=== PATIENT | female | born 1995 | race African-American/Black ===

== ENCOUNTER 2025-03-27 09:32 | Observation (INO) | payer BC ==
[2025-03-28] MEDS ORDERED: IBU600T PO (21:56)
[2025-03-28] MEDS ORDERED: DOCU-94 PO (21:56)
[2025-03-28] MEDS ORDERED: FER325T PO (21:56)
--- NOTE | 2025-04-07 13:38 | DVHDS2 ---
Physician Discharge Progress N Final Diagnosis: contractions,labor check Operations or Procedures: Operations or Procedures nst reactive reviwed Condition on Discharge: Good Disposition: Home Discharge Instructions: Diet: Regular Activity: No Restrictions, As Tolerated Medications: na Follow Up Care: Specialist: 2d Discharge Statement: "Patient was advised to return to the ER or call 911 if any headaches, dizziness, shortness of breath, chest pain, abdominal pain, bleeding, fevers, or worsening of medical condition. Patient was counseled about treatment plan, medications, possible side effects, patientverbalized understanding. All questions were answered to the best of my ability. This discharge took greater then 30 minutes in planning, reviewing documentation, counseling the patient, and discussing with other team members." Visit Coding OBGYN Date of Service: Mar 27, 2025 Billing Provider: NILAY KLEIN DO SECURED ENTRANCE MONITOR Common Visit Codes: [id number] OBS CARE (HIGH) SECURED ENTRANCE MONITOR Procedure Codes: 93508-60- NON-STRESS TEST NILAY KLEIN DO Apr 07, 2025 13:38
== END 2025-03-27 11:56 | disposition home or self-care (01) ==
LOC: LDRP 09:32
PROVIDERS: ADMIT Obstetrics & Gynecology; ATTEND Obstetrics & Gynecology
DX: O62.9 Abnormality of forces of labor, unspecified (principal); Z3A.38 38 weeks gestation of pregnancy; Z98.890 Other specified postprocedural states; Z79.899 Other long term (current) drug therapy
CPT/HCPCS: 59025; 81002; G0378

== ENCOUNTER 2025-03-27 22:02 | Inpatient (IN) | payer BC ==
[~2025-03-27] VITALS: Ht 154.9 cm; Wt 86.2 kg
[2025-03-27] MEDS ORDERED: LIDOCAINE 2%HCL (LOCAL ANESTH.) INJ 20ML MDV IJ PRN (22:15)
[2025-03-27] MEDS: LACTATED RINGER'S 1,000 ML IV SCH (22:15)
[2025-03-27] MEDS ORDERED: NALBUPHINE HCL 10 MG/1ml INJECTION IM PRN (22:15)
[2025-03-27] MEDS ORDERED: NALBUPHINE HCL 10 MG/1ml INJECTION IV PRN (22:15)
[2025-03-27 22:50] LABS: Urine Protein, UAD Negative (Negative)
[2025-03-27 22:52] LABS: Hematocrit 37.9 % (36.0-46.0); Hemoglobin 12.9 g/dL (12.2-16.2); Mean Corpuscular Hemoglobin 29.7 pg (28.0-32.0); Mean Corpuscular Volume 87.1 fL (80.0-100.0); Nucleated Red Blood Cells % 0.3 %
[2025-03-27 23:05] LABS: Alanine Aminotransferase 23 U/L (7-40); Albumin 4.1 g/dL (3.2-4.8); Anion Gap 9 (5-15); BUN/Creatinine Ratio 12.7 (10.0-20.0); Calcium 9.4 mg/dL (8.7-10.4); Carbon Dioxide 23 mmol/L (20-31); Chloride 107 mmol/L (98-107); Potassium 3.9 mmol/L (3.5-5.1); Sodium 139 mmol/L (136-145); Total Protein 6.8 g/dL (5.7-8.2)
[2025-03-27 23:05] LABS: Amphetamine Screen, Urine Neg (NEGATIVE); Barbiturate Scree,Urine Neg (NEGATIVE); Benzodiazephine Screen, Urine Neg (NEGATIVE); Cannabinoid Screen, Urine Neg (NEGATIVE); Cocaine Screen, Urine Neg (NEGATIVE); Opiate Scree,Urine Neg (NEGATIVE); Phencyclidine Screen, Urine Neg (NEGATIVE)
[2025-03-27 23:06] LABS: Bilirubin, Total 0.5 mg/dL (0.2-1.0)
[2025-03-27 23:09] LABS: Alkaline Phosphatase 290 U/L (46-116); Blood Urea Nitrogen 7 mg/dL (9-23); Glucose 69 mg/dL (74-106)
[2025-03-27 23:10] LABS: INR 0.96 (0.9-1.15); Partial Thromboplastin Time 25.8 SEC (24.5-34.5); Prothrombin Time 10.2 sec (9.3-11.8)
[2025-03-27] MEDS ORDERED: CALCIUM CARB 500 MG CHEW TAB PO PRN (23:30)
--- NOTE | 2025-03-28 05:43 | DVHHP2 ---
OB CC & HPI Date Date of Admission: Mar 27, 2025 Patient Identification: : 7 Para: 4 EDC: Apr 04, 2025 EGA: 39+ Chief Complaints: Reason for admission: induction of labor (Elective induction by her primary Dr Mcbride ) Other reason for admission: Induction surrogate mother Admission Nurse Assessment Rev: Yes History of Present Complaints + FM mild contractions Past Medical History Cardiac: No pertinent Hx Pulmonary: No pertinent Hx Central Nervous System: No pertinent Hx GI: No pertinent Hx Hemotology/Oncology: No pertinent Hx Hepatobiliary: No pertinent Hx Psychiatric: No pertinent Hx Musculoskeletal: No pertinent Hx Rheumotologic: No pertinent Hx Infectious Disease: No peritnent Hx ENT: No pertinent Hx Renal/: No pertinent Hx Endocrine: No pertinent Hx Dermatology: No pertinent Hx Past Surgical History: No pertinent Hx OB History OB History Care: Good Care Ultrasounds: Normal mid trimester US Obstetrical Complications: None Medical Complications: None Allergies: Coded Allergies: NO KNOWN ALLERGIES (Unverified , 03/27/25) Home Meds No Active Prescriptions or Reported Meds Current Medications Current Medications Medications (Trade) Dose Ordered Sig/Silvina Route PRN Reason Start Time Stop Time Status Last Admin Lactated Ringer's 1,000 ml @ 125 mls/hr Q8H IV 03/27/25 22:15 Nalbuphine HCl (Nubain) 10 mg Q4HP PRN IM MODERATE PAIN (4-6 PAIN SCALE) 03/27/25 22:15 Nalbuphine HCl (Nubain) 10 mg Q4HP PRN IV MODERATE PAIN (4-6 PAIN SCALE) 03/27/25 22:15 Witch Yaneth (Tucks) 1 pad PRN PRN TOP PERINEAL AREA DISCOMFORT 03/27/25 22:15 Sodium Lauryl Sulfate (Phisoderm) 240 ml PRN PRN TOP PERINEAL AREA DISCOMFORT 03/27/25 22:15 Benzocaine (Dermoplast) 1 applic PRN PRN TOP PERINEAL AREA DISCOMFORT 03/27/25 22:15 Misoprostol (Cytotec) 50 mcg Q4HPRN PRN PO CERVICAL RIPENING 03/27/25 22:15 03/28/25 02:00 Lidocaine HCl (Xylocaine) 20 ml ONCE PRN IJ PERINEAL AREA DISCOMFORT 03/27/25 22:15 Famotidine (Pepcid Injection) 20 mg Q12HR PRN IV FOR STOMACH DISTRESS 03/27/25 23:30 Calcium Carbonate (Tums) 500 mg QIDPRN PRN PO FOR STOMACH DISTRESS 03/27/25 23:30 Family & Social History Family/Social History Blood Type: O+ Rubella: immune RPR/VDRL: Negative GBS Status: Negative HBsAG: Negative Review of Systems Constitutional: No symptom reported Ears, Nose, & Throat: No symptom reported Eyes: No symptom reported Pulmonary/Respiratory: No symptom reported Cardiovascular: No symptom reported Gastrointestinal: No symptom reported Genitourinary: No symptom reported Musculoskeletal: No symptom reported Skin: No symptom reported Psychiatric: No symptom reported Endocrine: No symptom reported Hemotologic/Lymphatic: No symptom reported OB Admission Exam Physical Exam HEENT: TMs Normal, Fontanelles Normal, Nasal Mucosa Normal, Eyes non-injected, Oropharynx Normal, PERRLA, Moist Membranes, EOMI Heart: Rhythm Normal Lungs: Clear Abdomen: Non tender Extremities: Normal Reflexes: Normal Pelvic Exam: 2cm 50% intact Cervical Dilatation: 2cm Effacement: 50% Station: -2 Membranes: Intact Heart Rate: 130's Accelerations: Accelerations Present Short Term Variability: Present Respiratory Care Practitioner Variability: Average (6-25) Contractions on Admission: 6-10 Minutes Apart Intensity: Mild OB Plan Plan Admitting Diagnosis: Induction of labor DUNCAN BARBER DO Mar 28, 2025 05:43
[2025-03-28] MEDS: WITCH HAZEL-GLYCERIN PAD TOP PRN (05:53)
[2025-03-28] MEDS: PHISODERM TOP SOLN 240ML BTL TOP PRN (05:54)
[2025-03-28] MEDS: DERMOPLAST 60ML BOTTLE TOP PRN (05:54)
--- NOTE | 2025-03-28 06:25 | DVHDS2 ---
Discharge Summary Date of Admission Mar 27, 2025 at 22:02 Date of Discharge: Mar 27, 2025 Admitting Diagnosis rule out labor Labs/Diagnostic Data: Laboratory Results Test 03/27/25 22:24 03/27/25 22:18 White Blood Count 7.1 10^3/uL (4.4-10.8) Red Blood Count 4.35 10^6/uL (4.0-5.20) Hemoglobin 12.9 g/dL (12.2-16.2) Hematocrit 37.9 % (36.0-46.0) Mean Corpuscular Volume 87.1 fL (80.0-100.0) Mean Corpuscular Hemoglobin 29.7 pg (28.0-32.0) Mean Corpuscular Hemoglobin Concent 34.1 g/dL (32.0-36.0) Red Cell Distribution Width 15.8 % (11.8-14.3) Platelet Count 265 10^3/uL (140-450) Mean Platelet Volume 8.4 fL (6.9-10.8) Neutrophils (%) (Auto) 60.3 % (37.0-80.0) Lymphocytes (%) (Auto) 29.1 % (10.0-50.0) Monocytes (%) (Auto) 7.5 % (0.0-12.0) Eosinophils (%) (Auto) 2.6 % (0.0-7.0) Basophils (%) (Auto) 0.5 % (0.0-2.0) Neutrophils # (Auto) 4.3 10 ^3/uL (1.6-8.6) Lymphocytes # (Auto) 2.1 10 ^3/uL (0.4-5.4) Monocytes # (Auto) 0.5 10 ^3/uL (0-1.3) Eosinophils # (Auto) 0.2 10 ^3/uL (0-0.8) Basophils # (Auto) 0 10 ^3/uL (0-0.2) Nucleated Red Blood Cells 0.3 % Prothrombin Time 10.2 sec (9.3-11.8) Prothrombin Time INR 0.96 (0.9-1.15) Activated Partial Thromboplast Time 25.8 SEC (24.5-34.5) Sodium Level 139 mmol/L (136-145) Potassium Level 3.9 mmol/L (3.5-5.1) Chloride Level 107 mmol/L (98-107) Carbon Dioxide Level 23 mmol/L (20-31) Anion Gap 9 (5-15) Blood Urea Nitrogen 7 mg/dL (9-23) Creatinine 0.55 mg/dL (0.550-1.02) Glomerular Filtration Rate Calc 125 mL/min (>90) BUN/Creatinine Ratio 12.7 (10.0-20.0) Serum Glucose 69 mg/dL (74-106) Calcium Level 9.4 mg/dL (8.7-10.4) Total Bilirubin 0.5 mg/dL (0.2-1.0) Aspartate Amino Transferase (AST) 21 U/L (13-40) Alanine Aminotransferase (ALT) 23 U/L (7-40) Alkaline Phosphatase 290 U/L (46-116) Total Protein 6.8 g/dL (5.7-8.2) Albumin 4.1 g/dL (3.2-4.8) Treponema pallidum Antibody Non-reactive (Negative) Hepatitis C Antibody Negative (Negative) Urine Color Light-yellow (Yellow) Urine Clarity Clear (Clear) Urine pH 6.0 (5.0-9.0) Urine Specific [place] 1.007 (1.001-1.035) Urine Protein Negative (Negative) Urine Ketones Negative (Negative) Urine Blood Negative /uL (Negative) Urine Nitrite Negative (Negative) Urine Bilirubin Negative (Negative) Urine Urobilinogen Normal mg/dL (Negative) Urine Leukocyte Esterase Negative /uL (Negative) Urine RBC <1 /hpf (0 - 4) Urine Microscopic WBC < 1 /HPF (0-5) Urine Squamous Epithelial Cells Few /hpf (<5) Urine Bacteria None seen /hpf (None Seen) Urine Glucose Normal mg/dL (Normal) Urine Opiates Screen Neg (NEGATIVE) Urine Fentanyl Screen Neg (NEGATIVE) Urine Barbiturates Screen Neg (NEGATIVE) Urine Phencyclidine Screen Neg (NEGATIVE) Urine Amphetamines Screen Neg (NEGATIVE) Urine Benzodiazepines Screen Neg (NEGATIVE) Urine Cocaine Screen Neg (NEGATIVE) Urine Cannabinoids Screen Neg (NEGATIVE) Other Laboratory Tests 03/27/25 22:24 Brief Hx & Hospital Course: nst performed and reassuring, US reassuring Condition at Discharge: Good Final Diagnosis/Problems List labor check no labor Discharge Disposition: Home Discharge Instruct/Medications Diet: Regular Activity: Light activity (pelvic rest, labor precautions) No Active Prescriptions or Reported Meds Discharge Statement: "Patient was advised to return to the ER or call 911 if any headaches, dizziness, shortness of breath, chest pain, abdominal pain, bleeding, fevers, or worsening of medical condition. Patient was counseled about treatment plan, medications, possible side effects, patientverbalized understanding. All questions were answered to the best of my ability. This discharge took greater then 30 minutes in planning, reviewing documentation, counseling the patient, and discussing with other team members." ASSESSMENT ASSESSMENT Assessment Visit Coding OBGYN Date of Service: Mar 27, 2025 Billing Provider: DUNCAN BARBER DO TRUCK MANAGER Common Visit Codes: 66098-EFH/OBS SAME DATE (LOW), 81109-XNI/OBS SAME DATE (MOD), 00350-JYA/OBS SAME DATE (HIGH) TRUCK MANAGER Procedure Codes: 40404-86- NON-STRESS TEST DUNCAN BARBER DO Mar 28, 2025 06:25
[2025-03-28] MEDS ORDERED: NALOXONE HCL 0.4 MG/ML VIAL IV ONE (06:45)
--- NOTE | 2025-03-28 07:59 | LDN2 ---
Labor and Delivery Note Date 03/28/25 Age 30 7 Para 3 Labs Blood Bank 03/27/25 22:24: Blood Type O POSITIVE HEYDI PACE Mar 28, 2025 07:59
--- NOTE | 2025-03-28 08:10 | DVHPN2 ---
OB Labor Progress Note Date and Time Seen Date Seen: Mar 28, 2025 Time Seen: 07:48 Subjective Patient reports: Feels worse Subjective Comment Epidural just done but not working, pt c/o of UC pain still. Objective Vital Signs VSS see CPN Monitoring Method Monitoring Method: External Heart Rate Heart Rate Baseline: 145 Heart Rate Variability: Moderate Presence of FHR Accelerations: Yes Presence of FHR Decelerations: No Changes in Trends of Patterns: No Are all 5 Components of the FH: Yes Contractions Contractions Frequency: Occasional (2-5min) Contractions Intensity: Mild Contractions Resting Tone: Relaxed Membranes Membranes: Intact Vaginal Exam Vag Exam Deferred: Yes (SVE by RN: 2.5/60/-2) Vaginal Exam Presentation: VTX Vaginal Exam Show: None Medications Medications - Pitocin: No Medication - Epidural: Yes Medication - Other pt received misoprostol PO Lab Results Lab Results Vital Signs Date Time Temp Pulse Resp B/P (MAP) Pulse Ox O2 Delivery O2 Flow Rate FiO2 03/28/25 16:00 Room Air Current Medications Medications (Trade) Dose Ordered Sig/Silvina Start Time Stop Time Status Last Admin Dose Admin Lactated Ringer's 1,000 ml @ 125 mls/hr Q8H 03/27/25 22:15 03/28/25 16:19 DC 03/28/25 08:48 125 MLS/HR Nalbuphine HCl (Nubain) 10 mg Q4HP PRN 03/27/25 22:15 03/28/25 16:19 DC Nalbuphine HCl (Nubain) 10 mg Q4HP PRN 03/27/25 22:15 03/28/25 16:19 DC Erik Wolfe (Tucks) 1 pad PRN PRN 03/27/25 22:15 03/28/25 05:53 1 PAD Sodium Lauryl Sulfate (Phisoderm) 240 ml PRN PRN 03/27/25 22:15 03/28/25 05:54 240 ML Benzocaine (Dermoplast) 1 applic PRN PRN 03/27/25 22:15 03/28/25 05:54 1 APPLIC Misoprostol (Cytotec) 50 mcg Q4HPRN PRN 03/27/25 22:15 03/28/25 16:19 DC 03/28/25 05:59 50 MCG Lidocaine HCl (Xylocaine) 20 ml ONCE PRN 03/27/25 22:15 03/28/25 16:19 DC Famotidine (Pepcid Injection) 20 mg Q12HR PRN 03/27/25 23:30 03/28/25 10:08 20 MG Calcium Carbonate (Tums) 500 mg QIDPRN PRN 03/27/25 23:30 Naloxone HCl (Narcan) 0.2 mg PRN ONCE 03/28/25 06:45 03/28/25 16:20 DC Ephedrine Sulfate (ePHEDrine SULFATE) 10 mg PRN ONCE 03/28/25 06:45 03/28/25 16:20 DC Lactated Ringer's 1,000 ml @ 1,000 mls/hr Q1H ONCE 03/28/25 06:45 03/28/25 07:44 DC 03/28/25 08:48 1,000 MLS/HR Oxytocin 1,000 ml @ 6 ml/hr Q24H 03/28/25 10:15 03/28/25 16:20 DC 03/28/25 10:46 6 ML/HR Terbutaline Sulfate (Brethine Inj) 0.25 mg ONCE PRN 03/28/25 10:15 03/28/25 16:20 DC Oxytocin 500 ml @ 999 mls/hr Q31M ONCE 03/28/25 10:15 03/28/25 10:45 DC Oxytocin 500 ml @ 125 mls/hr Q4H ONCE 03/28/25 10:45 03/28/25 14:44 DC Ibuprofen (Motrin Tablet) 600 mg Q6HP PRN 03/28/25 16:30 03/28/25 17:03 600 MG Acetaminophen (Tylenol Tablet) 650 mg Q4HP PRN 03/28/25 16:30 Laboratory Tests Test 03/28/25 15:40 03/27/25 22:24 03/27/25 22:18 Range/Units White Blood Count 11.4 #H 4.4-10.8 10^3/uL Red Blood Count 3.68 L 4.0-5.20 10^6/uL Hemoglobin 10.9 #L 12.2-16.2 g/dL Hematocrit 33.9 #L 36.0-46.0 % Mean Corpuscular Volume 92.3 # 80.0-100.0 fL Mean Corpuscular Hemoglobin 29.6 28.0-32.0 pg Mean Corpuscular Hemoglobin Concent 32.1 32.0-36.0 g/dL Red Cell Distribution Width 15.9 H 11.8-14.3 % Platelet Count 221 140-450 10^3/uL Mean Platelet Volume 8.3 6.9-10.8 fL Neutrophils (%) (Auto) 79.4 37.0-80.0 % Lymphocytes (%) (Auto) 13.0 10.0-50.0 % Monocytes (%) (Auto) 6.0 0.0-12.0 % Eosinophils (%) (Auto) 1.2 0.0-7.0 % Basophils (%) (Auto) 0.4 0.0-2.0 % Neutrophils # (Auto) 9.0 H 1.6-8.6 10 ^3/uL Lymphocytes # (Auto) 1.5 0.4-5.4 10 ^3/uL Monocytes # (Auto) 0.7 0-1.3 10 ^3/uL Eosinophils # (Auto) 0.1 0-0.8 10 ^3/uL Basophils # (Auto) 0 0-0.2 10 ^3/uL Nucleated Red Blood Cells 0.1 % Prothrombin Time 10.2 9.3-11.8 sec Prothrombin Time INR 0.96 0.9-1.15 Activated Partial Thromboplast Time 25.8 24.5-34.5 SEC Sodium Level 139 136-145 mmol/L Potassium Level 3.9 3.5-5.1 mmol/L Chloride Level 107 98-107 mmol/L Carbon Dioxide Level 23 20-31 mmol/L Anion Gap 9 5-15 Blood Urea Nitrogen 7 L 9-23 mg/dL Creatinine 0.55 0.550-1.02 mg/dL Glomerular Filtration Rate Calc 125 >90 mL/min BUN/Creatinine Ratio 12.7 10.0-20.0 Serum Glucose 69 L 74-106 mg/dL Calcium Level 9.4 8.7-10.4 mg/dL Total Bilirubin 0.5 0.2-1.0 mg/dL Aspartate Amino Transferase (AST) 21 13-40 U/L Alanine Aminotransferase (ALT) 23 7-40 U/L Alkaline Phosphatase 290 H 46-116 U/L Total Protein 6.8 5.7-8.2 g/dL Albumin 4.1 3.2-4.8 g/dL Treponema pallidum Antibody Non-reactive Negative Hepatitis C Antibody Negative Negative Urine Color Light-yellow Yellow Urine Clarity Clear Clear Urine pH 6.0 5.0-9.0 Urine Specific [place] 1.007 1.001-1.035 Urine Protein Negative Negative Urine Ketones Negative Negative Urine Blood Negative Negative /uL Urine Nitrite Negative Negative Urine Bilirubin Negative Negative Urine Urobilinogen Normal Negative mg/dL Urine Leukocyte Esterase Negative Negative /uL Urine RBC <1 0 - 4 /hpf Urine Microscopic WBC < 1 0-5 /HPF Urine Squamous Epithelial Cells Few <5 /hpf Urine Bacteria None seen None Seen /hpf Urine Glucose Normal Normal mg/dL Urine Opiates Screen Neg NEGATIVE Urine Fentanyl Screen Neg NEGATIVE Urine Barbiturates Screen Neg NEGATIVE Urine Phencyclidine Screen Neg NEGATIVE Urine Amphetamines Screen Neg NEGATIVE Urine Benzodiazepines Screen Neg NEGATIVE Urine Cocaine Screen Neg NEGATIVE Urine Cannabinoids Screen Neg NEGATIVE Assessment Assessment 30yo IUP@39.0wks Elective Induction of Labor Category I EFM Intact Membranes GBS negative Plan Plan Recommended cooks balloon, pt refused RN to recheck cervix at 1000 and start pitocin iV monitoring per order Pain mgmt - epidural in place Frequent position changes in bed encouraged Limit SVE unless necessary Intrauterine resuscitation PRN Anticipate CNM will consult with Dr. Mcbride PRN Plan discussed with: Patient Visit Coding OBGYN Date of Service: Mar 28, 2025 Billing Provider: FRANSISCO WHITAKER CNM HOTEL OR MOTEL MANAGER Common Visit Codes: [id number] INP/OBS CARE(MOD) HEYDI PACE Mar 28, 2025 08:10
[2025-03-28] MEDS: ROPIVACAINE HCL 100 ML ONE (08:47)
[2025-03-28] MEDS: LACTATED RINGER'S 1,000 ML IV ONE (08:48)
[2025-03-28] MEDS: FAMOTIDINE (10MG/ML) 2ML VL IV PRN (10:08)
[2025-03-28] MEDS ORDERED: TERBUTALINE SULFATE 1 MG/ML 1ML VIAL SC PRN (10:15)
[2025-03-28] MEDS ORDERED: LACT. RINGERS/OXYTOCIN 20UNITS 500 ML IV ONE ×2 (10:15→10:45)
[2025-03-28] MEDS: LACT. RINGERS/OXYTOCIN 20UNITS 1,000 ML IV SCH (10:46)
--- NOTE | 2025-03-28 13:12 | DVHPN2 ---
OB Labor Progress Note Date and Time Seen Date Seen: Mar 28, 2025 Time Seen: 13:03 Subjective Patient reports: No new complaints (pt is sleeping upon arrival at bedside) Subjective Comment Pt is asleep Objective Vital Signs VSS see CPN Monitoring Method Monitoring Method: External Heart Rate Heart Rate Baseline: 145 Heart Rate Variability: Moderate Presence of FHR Accelerations: Yes Presence of FHR Decelerations: No Changes in Trends of Patterns: No Are all 5 Components of the FH: Yes Contractions Contractions Frequency: Occasional (2-5 mins) Contractions Intensity: Moderate Contractions Resting Tone: Relaxed Membranes Membranes: Intact Vaginal Exam Vag Exam Deferred: Yes Vaginal Exam Presentation: VTX Medications Medications - Pitocin: Yes (pitocin @ 10mu) Medication - Epidural: Yes Lab Results Lab Results Vital Signs Date Time Temp Pulse Resp B/P (MAP) Pulse Ox O2 Delivery O2 Flow Rate FiO2 03/28/25 16:00 Room Air Current Medications Medications (Trade) Dose Ordered Sig/Silvina Start Time Stop Time Status Last Admin Dose Admin Lactated Ringer's 1,000 ml @ 125 mls/hr Q8H 03/27/25 22:15 03/28/25 16:19 DC 03/28/25 08:48 125 MLS/HR Nalbuphine HCl (Nubain) 10 mg Q4HP PRN 03/27/25 22:15 03/28/25 16:19 DC Nalbuphine HCl (Nubain) 10 mg Q4HP PRN 03/27/25 22:15 03/28/25 16:19 DC Erik Wolfe (Tucks) 1 pad PRN PRN 03/27/25 22:15 03/28/25 05:53 1 PAD Sodium Lauryl Sulfate (Phisoderm) 240 ml PRN PRN 03/27/25 22:15 03/28/25 05:54 240 ML Benzocaine (Dermoplast) 1 applic PRN PRN 03/27/25 22:15 03/28/25 05:54 1 APPLIC Misoprostol (Cytotec) 50 mcg Q4HPRN PRN 03/27/25 22:15 03/28/25 16:19 DC 03/28/25 05:59 50 MCG Lidocaine HCl (Xylocaine) 20 ml ONCE PRN 03/27/25 22:15 03/28/25 16:19 DC Famotidine (Pepcid Injection) 20 mg Q12HR PRN 03/27/25 23:30 03/28/25 10:08 20 MG Calcium Carbonate (Tums) 500 mg QIDPRN PRN 03/27/25 23:30 Naloxone HCl (Narcan) 0.2 mg PRN ONCE 03/28/25 06:45 03/28/25 16:20 DC Ephedrine Sulfate (ePHEDrine SULFATE) 10 mg PRN ONCE 03/28/25 06:45 03/28/25 16:20 DC Lactated Ringer's 1,000 ml @ 1,000 mls/hr Q1H ONCE 03/28/25 06:45 03/28/25 07:44 DC 03/28/25 08:48 1,000 MLS/HR Oxytocin 1,000 ml @ 6 ml/hr Q24H 03/28/25 10:15 03/28/25 16:20 DC 03/28/25 10:46 6 ML/HR Terbutaline Sulfate (Brethine Inj) 0.25 mg ONCE PRN 03/28/25 10:15 03/28/25 16:20 DC Oxytocin 500 ml @ 999 mls/hr Q31M ONCE 03/28/25 10:15 03/28/25 10:45 DC Oxytocin 500 ml @ 125 mls/hr Q4H ONCE 03/28/25 10:45 03/28/25 14:44 DC Ibuprofen (Motrin Tablet) 600 mg Q6HP PRN 03/28/25 16:30 03/28/25 17:03 600 MG Acetaminophen (Tylenol Tablet) 650 mg Q4HP PRN 03/28/25 16:30 Laboratory Tests Test 03/28/25 15:40 03/27/25 22:24 03/27/25 22:18 Range/Units White Blood Count 11.4 #H 4.4-10.8 10^3/uL Red Blood Count 3.68 L 4.0-5.20 10^6/uL Hemoglobin 10.9 #L 12.2-16.2 g/dL Hematocrit 33.9 #L 36.0-46.0 % Mean Corpuscular Volume 92.3 # 80.0-100.0 fL Mean Corpuscular Hemoglobin 29.6 28.0-32.0 pg Mean Corpuscular Hemoglobin Concent 32.1 32.0-36.0 g/dL Red Cell Distribution Width 15.9 H 11.8-14.3 % Platelet Count 221 140-450 10^3/uL Mean Platelet Volume 8.3 6.9-10.8 fL Neutrophils (%) (Auto) 79.4 37.0-80.0 % Lymphocytes (%) (Auto) 13.0 10.0-50.0 % Monocytes (%) (Auto) 6.0 0.0-12.0 % Eosinophils (%) (Auto) 1.2 0.0-7.0 % Basophils (%) (Auto) 0.4 0.0-2.0 % Neutrophils # (Auto) 9.0 H 1.6-8.6 10 ^3/uL Lymphocytes # (Auto) 1.5 0.4-5.4 10 ^3/uL Monocytes # (Auto) 0.7 0-1.3 10 ^3/uL Eosinophils # (Auto) 0.1 0-0.8 10 ^3/uL Basophils # (Auto) 0 0-0.2 10 ^3/uL Nucleated Red Blood Cells 0.1 % Prothrombin Time 10.2 9.3-11.8 sec Prothrombin Time INR 0.96 0.9-1.15 Activated Partial Thromboplast Time 25.8 24.5-34.5 SEC Sodium Level 139 136-145 mmol/L Potassium Level 3.9 3.5-5.1 mmol/L Chloride Level 107 98-107 mmol/L Carbon Dioxide Level 23 20-31 mmol/L Anion Gap 9 5-15 Blood Urea Nitrogen 7 L 9-23 mg/dL Creatinine 0.55 0.550-1.02 mg/dL Glomerular Filtration Rate Calc 125 >90 mL/min BUN/Creatinine Ratio 12.7 10.0-20.0 Serum Glucose 69 L 74-106 mg/dL Calcium Level 9.4 8.7-10.4 mg/dL Total Bilirubin 0.5 0.2-1.0 mg/dL Aspartate Amino Transferase (AST) 21 13-40 U/L Alanine Aminotransferase (ALT) 23 7-40 U/L Alkaline Phosphatase 290 H 46-116 U/L Total Protein 6.8 5.7-8.2 g/dL Albumin 4.1 3.2-4.8 g/dL Treponema pallidum Antibody Non-reactive Negative Hepatitis C Antibody Negative Negative Urine Color Light-yellow Yellow Urine Clarity Clear Clear Urine pH 6.0 5.0-9.0 Urine Specific [place] 1.007 1.001-1.035 Urine Protein Negative Negative Urine Ketones Negative Negative Urine Blood Negative Negative /uL Urine Nitrite Negative Negative Urine Bilirubin Negative Negative Urine Urobilinogen Normal Negative mg/dL Urine Leukocyte Esterase Negative Negative /uL Urine RBC <1 0 - 4 /hpf Urine Microscopic WBC < 1 0-5 /HPF Urine Squamous Epithelial Cells Few <5 /hpf Urine Bacteria None seen None Seen /hpf Urine Glucose Normal Normal mg/dL Urine Opiates Screen Neg NEGATIVE Urine Fentanyl Screen Neg NEGATIVE Urine Barbiturates Screen Neg NEGATIVE Urine Phencyclidine Screen Neg NEGATIVE Urine Amphetamines Screen Neg NEGATIVE Urine Benzodiazepines Screen Neg NEGATIVE Urine Cocaine Screen Neg NEGATIVE Urine Cannabinoids Screen Neg NEGATIVE Assessment Assessment 30yo IUP@39.0wks Elective Induction of Labor Category I EFM Intact Membranes GBS negative Plan Plan continue with IV pitocin titration per order Possible AROM at next cervical check monitoring per order Pain mgmt - epidural in place Frequent position changes in bed encouraged Limit SVE unless necessary Intrauterine resuscitation PRN Anticipate CNM will consult with Dr. Mcbride PRN Plan discussed with: Other (primary RN) Visit Coding OBGYN Date of Service: Mar 28, 2025 Billing Provider: FRANSISCO WHITAKER CNM WELT DRAWER Common Visit Codes: [id number] INP/OBS CARE(MOD) HEYDI PACE Mar 28, 2025 13:12
[2025-03-28 16:00] LABS: Hematocrit 33.9 % (36.0-46.0); Hemoglobin 10.9 g/dL (12.2-16.2); Mean Corpuscular Hemoglobin 29.6 pg (28.0-32.0); Mean Corpuscular Volume 92.3 fL (80.0-100.0); Nucleated Red Blood Cells % 0.1 %
[2025-03-28] MEDS: IBUPROFEN 600 MG TAB PO PRN (17:03)
[2025-03-28 19:24] VITALS: BP 103/55; PULSE 110; RESP 17; TEMP 98.5; O2SAT 98
--- NOTE | 2025-03-28 19:41 | LDN2 ---
Labor and Delivery Note Date 03/28/25 Age 30 7 Para 4 AB 3 EDC 04/05/25 EGA 39wk Diagnosis Elective IOL Vaginal Delivery: VTX Vacuum Assisted: No Placenta: Spontaneous Sex: Male Weight 2940g Apgars 8,9 Nuchal Cord Transected: No Amniotic Fluid: Clear Anesthesia epidural Episiotomy: No Extension: No Repaired with N/A EBL 500ml Labs Blood Bank 03/27/25 22:24: Blood Type O POSITIVE Complications N/A Conditions stable Photographer Apprentice Lithographic Arturo Comments/Significant Med Agusto Note- At 1402 this 30yo now delivered a viable Male by w/ APGARS 8/9. KERI . Infant handed to RNs. Cord segment collected for cord gases but RT unable to draw blood. Cord clamped and cut. Cord blood sent. Pitocin IV bolus started. Intact 3-vessel cord placenta delivered spontaneously, Martina (by nivia wild CNM). Placenta sent to pathology. Patient had epidural. Cervix/vagina inspected (intact) and first degree perineal laceration present, hemostatic, not repaired Fundus at U, firm, midline, and light lochia. QBL 500ml. VSS. Count correct x2. Patient to care and baby to couplet care, both stable. Visit Coding OBGYN Date of Service: Mar 28, 2025 Billing Provider: FRANSISCO WILD CNM MANAGER STAFFING Common Visit Codes: PROCEDURE ONLY MANAGER STAFFING Procedure Codes: [id number] DEL INCLUDING HEYDI PACE Mar 28, 2025 19:40
[2025-03-28] MEDS ORDERED: DOCU-94 PO (21:56)
[2025-03-28] MEDS ORDERED: FER325T PO (21:56)
[2025-03-28] MEDS ORDERED: IBU600T PO (21:56)
[2025-03-28 22:30] VITALS: BP 102/66; PULSE 96; RESP 17; TEMP 97.9; O2SAT 100
[2025-03-28] MEDS: DOCUSATE SOD 100 MG CAP PO ONE (22:50)
[2025-03-29] MEDS: ACETAMINOPHEN 325 MG TAB PO PRN (03:04)
--- NOTE | 2025-03-29 05:31 | DVHPN2 ---
Progress Note Date Seen: Mar 29, 2025 Subjective S: bleeding is less, eating food without issues, denies lightheaded/dizziness, pain well controlled with oral medications, no concerns with urinating, no BM yet, ambulating well, pt is not (surrogate ) vital signs Vital Sign Date Time Temp Pulse Resp B/P (MAP) Pulse Ox O2 Delivery O2 Flow Rate FiO2 03/28/25 22:30 97.9 96 17 102/66 (78) 100 97.9 03/28/25 19:00 Room Air Total Intake and Output 03/28/25 03/28/25 03/29/25 15:00 23:00 07:00 Output Total 1100 ml 300 ml Balance -1100 ml -300 ml medications Current Medications Medications Dose Ordered Sig/Silvina Route Start Time Stop Time Status Last Admin Dose Admin Erik Wolfe 1 pad PRN PRN TOP 03/27/25 22:15 03/28/25 05:53 1 PAD Sodium Lauryl Sulfate 240 ml PRN PRN TOP 03/27/25 22:15 03/28/25 05:54 240 ML Benzocaine 1 applic PRN PRN TOP 03/27/25 22:15 03/28/25 05:54 1 APPLIC Famotidine 20 mg Q12HR PRN IV 03/27/25 23:30 03/28/25 10:08 20 MG Calcium Carbonate 500 mg QIDPRN PRN PO 03/27/25 23:30 Ibuprofen 600 mg Q6HP PRN PO 03/28/25 16:30 03/29/25 05:25 600 MG Acetaminophen 650 mg Q4HP PRN PO 03/28/25 16:30 03/29/25 03:04 650 MG laboratory and microbiology Laboratory Tests 03/28/25 15:40 03/27/25 22:24 Test 03/27/25 22:24 Range/Units Serum Glucose 69 L 74-106 mg/dL Objective O: VSS Chest: heart and lung sounds normal. Abd soft, non-tender, fundus firm at U, BS, no rebound or guarding, Perineum: edges well approximated, no s/sx of infection BLE: +1, non pitting edema on both feet Lochia - minimal PP Labs Problems(with codes): (1) (normal spontaneous vaginal delivery) (2) First degree perineal laceration during delivery (3) Precipitous drop in hematocrit Assessment/Plan A: 30yo now PPD#1 anemia Rh+ Rubella Immune Surrogate mother, not , Pain control with PO medications Bowel regimen P: encouraged to wear tight fitted bra D/C home today Rx sent to pharmacy precautions and preeclampsia warning signs reviewed F/U with [facility] OB office in 2 weeks Plan discussed with: Patient HEYDI PACE Mar 29, 2025 05:31
[2025-03-29 09:42] LABS: Hematocrit 29.4 % (36.0-46.0); Hemoglobin 9.8 g/dL (12.2-16.2); Mean Corpuscular Hemoglobin 29.5 pg (28.0-32.0); Mean Corpuscular Volume 88.2 fL (80.0-100.0); Nucleated Red Blood Cells % 0.0 %
--- NOTE | 2025-03-29 15:19 | DVHDS2 ---
Obstetrics Discharge Summary Obstetrics Discharge Summary Date of Admission: Mar 27, 2025 Date of Discharge: Mar 29, 2025 Reason For Admission: Induction of Labor (elective) Procedures: NST Intrapartum Procedures: Spontaneous vaginal deliv Procedures: Hct/date:, Hgb/date: Operative Complicat: Laceration (1st deg perineal) Discharge Diagnosis: Term -Delivered Discharge Information: Activity (Activity: as tolerated, no heavy lifting and nothing in the vagina for 6 weeks), Diet (Routine), Medications (Rx sent), Instructions (Routine), Discharge to (Home), Accompanied by (family), Discarge date (03/29/25) Visit Coding OBGYN Date of Service: Mar 29, 2025 Billing Provider: FRANSISCO WHITAKER CNM SECOND BAKER Common Visit Codes: [id number]/OBS DISCH DAY <30MIN FRANSISCO WHITAKER CNM Mar 29, 2025 15:19
[2025-03-29 17:00] VITALS: BP 108/66; PULSE 88; RESP 17; TEMP 98.5; O2SAT 100
== END 2025-03-29 17:03 | disposition home or self-care (01) | DRG 807 ==
LOC: LDRP 22:02
PROVIDERS: ADMIT Obstetrics & Gynecology; ATTEND Obstetrics & Gynecology
PROC: 10E0XZZ Delivery of Products of Conception, External Approach (ICD-10-PCS; principal; 2025-03-28)
PROC: 0HQ9XZZ Repair Perineum Skin, External Approach (ICD-10-PCS; 2025-03-28)
PROC: 3E0R3BZ Introduction of Anesthetic Agent into Spinal Canal, Percutaneous Approach (ICD-10-PCS; 2025-03-28)
PROC: 00HU33Z Insertion of Infusion Device into Spinal Canal, Percutaneous Approach (ICD-10-PCS; 2025-03-28)
DX: O70.0 First degree perineal laceration during delivery (principal); Z37.0 Single live birth; Z3A.39 39 weeks gestation of pregnancy; O90.81 Anemia of the puerperium
CPT/HCPCS: 36415; 59025; 59409; 62282; 80053; 80307; 81001; 85025; 85610; 85730; 86780; 86803; 86850; 86900; 86901; 94760; 94762; 96360; 96361; 96365; 96366; 96374; G0378; J2590; J3490